=== PATIENT | female | born 1980 | race American Indian/Alaskan Native ===

== ENCOUNTER 2020-10-04 20:57 | Emergency (ER) | payer SELFPAY ==
[2020-10-04] MEDS ORDERED: dexAMETHasone 20 MG/5 ML VIAL IM ONE (21:28)
[2020-10-04] MEDS ORDERED: diphenhydrAMINE 25 MG CAP PO ONE (21:29)
[2020-10-04] MEDS ORDERED: ACETAMINOPHEN 500 MG TAB PO ONE (21:29)
[2020-10-04] MEDS ORDERED: METOCLOPRAMIDE 10 MG TAB PO ONE (21:29)
--- NOTE | 2020-10-04 21:32 | Event Note ---
ED Screening Note Date of service: 10/04/20 Time: 21:30 ED Screening Note: Patient is a 40-year-old female with a history of migraine headaches. Who presents for 7-10 frontal migraine today with photophobia and some nausea. Patient migraines usually controlled sumatriptan's however not working today. Patient denies fevers or chills no nausea vomiting no back pain no dizziness or lightheadedness. Symptoms are exacerbated by activity. Symptoms are relieved by nothing. This initial assessment/diagnostic orders/clinical plan/treatment(s) is/are subject to change based on patients health status, clinical progression and re- assessment by fellow clinical providers in the ED. Further treatment and workup at subsequent clinical providers discretion. Patient/guardian urged not to elope from the ED as their condition may be serious if not clinically assessed and managed. Initial orders include: benadryl, decadron, reglan, tylenol all po meds
--- NOTE | 2020-10-04 21:34 | Emergency Department Report ---
ED General Adult HPI - General Stated complaint: HEADACHE/NAUSEA - History of Present Illness Initial comments: Patient is a 40-year-old female with a history of migraine headaches. Who presents for 7-10 frontal migraine today with photophobia and some nausea, headache is in usual location and intensity as previous headaches.. Patient migraines usually controlled sumatriptan's however not working today. Patient denies fevers or chills no nausea vomiting no back pain no dizziness or lightheadedness. Symptoms are exacerbated by activity. Symptoms are relieved by nothing. - Related Data Previous Rx's Medication Instructions Recorded Last Taken Type Acetaminophen [Acetaminophen TAB] 1,000 mg PO Q6H PRN #30 tablet 10/04/20 Unknown Rx Metoclopramide [Reglan] 10 mg PO Q6H PRN #30 tablet 10/04/20 Unknown Rx diphenhydrAMINE [Benadryl CAP] 25 mg PO Q6HR PRN #30 capsule 10/04/20 Unknown Rx Allergies Allergy/AdvReac Type Severity Reaction Status Date / Time acetaminophen [From Percocet] Allergy Hives Verified 10/04/20 21:47 oxycodone [From Percocet] Allergy Hives Verified 10/04/20 21:47 promethazine [From Phenergan] Allergy Swelling Verified 10/04/20 21:47 ED Review of Systems ROS: Stated complaint: HEADACHE/NAUSEA Other details as noted in HPI Constitutional: denies: chills, fever Eyes: other (photophobia ). denies: eye pain, eye discharge, vision change ENT: denies: ear pain, throat pain Respiratory: denies: cough, shortness of breath, wheezing Cardiovascular: denies: chest pain, palpitations Endocrine: no symptoms reported Gastrointestinal: as per HPI Genitourinary: denies: urgency, dysuria, discharge Musculoskeletal: denies: back pain, joint swelling, arthralgia Skin: denies: rash, lesions Neurological: headache. denies: weakness, numbness, paresthesias, abnormal gait, vertigo Psychiatric: as per HPI Hematological/Lymphatic: denies: easy bleeding, easy bruising ED Past Medical Hx - Medications Home Medications: Home Medications Medication Instructions Recorded Confirmed Last Taken Type Acetaminophen [Acetaminophen TAB] 1,000 mg PO Q6H PRN #30 tablet 10/04/20 Unknown Rx Metoclopramide [Reglan] 10 mg PO Q6H PRN #30 tablet 10/04/20 Unknown Rx diphenhydrAMINE [Benadryl CAP] 25 mg PO Q6HR PRN #30 capsule 10/04/20 Unknown Rx ED Physical Exam - General General appearance: alert, in no apparent distress - Head Head exam: Present: atraumatic, normocephalic, normal inspection - Eye Eye exam: Present: PERRL, EOMI. Absent: conjunctival injection Pupils: Present: normal accommodation. Absent: unequal - ENT ENT exam: Present: normal orophraynx, mucous membranes moist, TM's normal bilaterally - Neck Neck exam: Present: normal inspection, full ROM. Absent: tenderness, meningismus, lymphadenopathy, thyromegaly - Expanded Neck Exam Expanded Neck exam: Present: other ( posterior vertebral point tenderness rom intact and unrestricted ). Absent: anterior neck swelling - Respiratory Respiratory exam: Present: normal lung sounds bilaterally. Absent: respiratory distress - Cardiovascular Cardiovascular Exam: Present: regular rate, normal rhythm, normal heart sounds. Absent: systolic murmur, diastolic murmur, rubs, gallop - GI/Abdominal GI/Abdominal exam: Present: soft, normal bowel sounds. Absent: distended, tenderness, bruit, hernia - Rectal Rectal exam: Present: deferred - Extremities Exam Extremities exam: Present: normal inspection - Back Exam Back exam: Present: normal inspection, full ROM. Absent: paraspinal tenderness, vertebral tenderness - Neurological Exam Neurological exam: Present: alert, oriented X3, CN II-XII intact, normal gait, motor sensory deficit, reflexes normal - Expanded Neurological Exam Expanded Patient oriented to: Present: person, place, time Speech: Present: fluid speech Motor strength exam: RUE: 5, LUE: 5, RLE: 5, LLE: 5 Best Eye Response ([place]): (4) open spontaneously Best Motor Response ([place]a): (6) obeys commands Best Verbal Response ([place]): (5) oriented Flora Total: 15 - Psychiatric Psychiatric exam: Present: normal affect, normal mood - Skin Skin exam: Present: warm, dry, intact, normal color. Absent: rash ED Course Vital Signs 10/04/20 10/04/20 10/04/20 21:28 21:35 21:41 Temperature 98.4 F Pulse Rate 100 H Respiratory 18 18 Rate Blood Pressure 159/101 O2 Sat by Pulse 100 Oximetry ED Medical Decision Making - Medical Decision Making Headache is improved to 3/10. Patient given additional pain medication in ED. We will follow-up with Dr. Boogie Tomorrow as scheduled. Patient is currently alert, oriented x3. Patient is amatory with steady gait. With no acute distress at this time. Critical care attestation.: If time is entered above; I have spent that time in minutes in the direct care of this critically ill patient, excluding procedure time. ED Disposition Clinical Impression: Headache Qualifiers: Headache type: unspecified Headache chronicity pattern: acute headache Intractability: not intractable Qualified Code(s): R51.9 - Headache, unspecified Disposition: - TO HOME OR SELFCARE Is pt being admited?: No Does the pt Need Aspirin: No Condition: Stable Instructions: Migraine Headache Prescriptions: Acetaminophen [Acetaminophen TAB] 1,000 mg PO Q6H PRN #30 tablet PRN Reason: Headache diphenhydrAMINE [Benadryl CAP] 25 mg PO Q6HR PRN #30 capsule PRN Reason: headache Metoclopramide [Reglan] 10 mg PO Q6H PRN #30 tablet PRN Reason: Headache Referrals: ITZEL FAIRCHILD MD [Referring] - 3-5 Days Forms: Work/School Release Form(ED) Time of Disposition: 22:32
[2020-10-04 21:35] VITALS: BP 159/101
[2020-10-04] MEDS ORDERED: HYDROcodone/ACETAMINOPHEN 5-325 MG TAB PO ONE (22:25)
== END 2020-10-04 22:41 | disposition home or self-care (01) ==
LOC: ED 20:57
DX: R51.9 Headache, unspecified (principal); Z79.899 Other long term (current) drug therapy; Z88.8 Allergy status to other drugs, medicaments and biological substances
CPT/HCPCS: 96372; 99282; J1100